=== PATIENT | female | born 1990 | race Caucasian/White ===

== ENCOUNTER 2021-10-11 23:26 | Emergency (ER) | payer MEDICAID, SELFPAY ==
[2021-10-11 23:28] VITALS: BP 133/96; PULSE 150; RESP 20; TEMP 36.7; O2SAT 100
[2021-10-11 23:39] VITALS: O2SAT 97
[2021-10-11 23:40] VITALS: BP 110/86; PULSE 161; RESP 28; O2SAT 96
[2021-10-11 23:46] VITALS: BP 131/106; PULSE 150; RESP 32; O2SAT 98
[2021-10-11 23:47] VITALS: PULSE 134; RESP 29; O2SAT 99
[2021-10-11 23:49] LABS: Basophils Absolute Auto 0.1 K/mm3 (0.0-0.1); Basophils Percent Auto 1.1 % (0.2-1.2); Hematocrit 40.7 % (37.0-47.0); Hemoglobin 14.3 g/dL (12.0-15.0); Immature Granulocyte Absolute 0.04 K/mm3 (0.00-0.031); Immature Granulocyte Percent A 0.6 % (0-0.5); Lymphocytes Absolute Auto 0.43 K/mm3 (0.9-3.2); Mean Corpuscular HGB Conc 35.1 g/dl (32-36); Mean Corpuscular Hemoglobin 35.7 pg (26-34); Mean Corpuscular Volume 101.5 fl (80-100); Mean Platelet Volume 10.9 fl (7.4-10.4); Monocytes Percent Auto 13.6 % (2.6-8.5); Neutrophils Absolute Auto 5.7 K/mm3 (1.3-6.7); Neutrophils Percent Auto 78.7 % (45.5-73.1); Nucleated Red Blood Cells Absolute Auto 0.1 K/mm3 (0.0-0.012); Nucleated Red Blood Cells Perc 0.7 % (0.0-0.2); Platelet Count Result 259 k/mm3 (150-375); Red Blood Count 4.01 M/mm3 (4.2-5.4); Red Cell Distribution Width 18.6 % (11.5-14.5); White Blood Count 7.2 K/mm3 (4.5-10.0)
[2021-10-11] MEDS: SODIUM CHLORIDE 0.9% IV 1,000 ML 999 ML IV CONT ×2 (23:50)
[2021-10-11] MEDS: LORazepam INJ (*CRX) 2 MG/ML VIAL IV PUSH (23:52)
[2021-10-11] MEDS: ONDANSETRON INJ 4 MG/2 ML VIAL IV PUSH (23:52)
[2021-10-11 23:59] LABS: Alanine Aminotransferase 111 U/L (6-35); Albumin Level 5.5 g/dL (3.5-5.1); Alkaline Phosphatase 109 U/L (38-126); Anion Gap 33 mmol/L (8-16); Aspartate Amino Transferase 438 U/L (14-36); Bilirubin,Total 1.8 mg/dL (0.2-1.3); Blood Urea Nitrogen 21 mg/dL (7-17); Calcium 9.6 mg/dL (8.4-10.2); Carbon Dioxide 11 mmol/L (22-30); Chloride 97 mmol/L (98-107); Estimated Glomerular Filt Rate 47; Glucose 124 mg/dL (65-110); Lipase 282 U/L (23-300); Potassium 4.1 mmol/L (3.4-5.0); Sodium 141 mmol/L (137-145)
[2021-10-12] VITALS (16 sets, daily range): BP systolic 108–151; BP diastolic 75–99; PULSE 104–137; RESP 15–31; O2SAT 95–100
--- NOTE | 2021-10-12 00:08 | ED.GENADULT ---
HPI - General Adult General Chief complaint: Nausea/Vomiting/Diarrhea Stated complaint: n/v for 48 hours Time Seen by Provider: 10/11/21 23:35 History of Present Illness HPI narrative: 31-year-old female presenting to the emergency department for evaluation for nausea and vomiting secondary to alcohol withdrawal. Patient states that she has been drinking heavily for approximately the last year and a half but even heavier over the last 2 months. Patient states over the last few weeks she was trying to decrease her alcohol consumption. Patient states she had been drinking up to 1/5 of alcohol a night. Patient states over the last few days she had weaned herself down to a pint a day and then a few days ago she stopped drinking completely. Patient states its been about a day and a half since she drank any alcohol. Since that time patient has had lots of nausea and vomiting. Patient does complaint of rapid heart rate. Patient denies any chest pain or shortness of breath. Patient states he does have some abdominal cramping due to the vomiting. Patient states he has never had seizures or tremor alcohol withdrawal. Patient states she did have a previous seizure but that was not associated with her drinking. Related Data Allergies Allergy/AdvReac Type Severity Reaction Status Date / Time No Known Allergies Allergy Verified 10/11/21 23:34 Review of Systems Review of Systems: CONSTITUTIONAL: Denies fever, chills, or sweats. EYES: Denies visual changes, redness, or discharge. ENT: Denies rhinorrhea, congestion, sore throat, or otalgia. CARDIOVASCULAR: Heart palpitations, see HPI RESPIRATORY: Denies cough or dyspnea. GASTROINTESTINAL: Nausea vomiting, see HPI GENITOURINARY: Denies dysuria or hematuria. SKIN: Denies rash or itching. MUSCULOSKELETAL: Denies back pain, joint pain, or myalgia. NEUROLOGIC: Denies headache, numbness, or weakness. PSYCHIATRIC: Denies anxiety or depression. Exam Narrative: APPEARANCE: Well appearing, no pain, no distress, well-nourished. HEAD: normocephalic, atraumatic. EYES: PERRLA/EOMI, conjunctivae clear. NOSE: Normal no drainage THROAT: Pharynx clear, no exudate. NECK: Supple. No adenopathy, no masses. RESPIRATORY: Airway patent, respirations nonlabored. Clear to auscultation bilaterally, no rales, rhonchi, wheezing. CARDIOVASCULAR: Regular rate and rhythm without murmurs rubs or gallops. ABDOMINAL: Soft, nontender, nondistended, normal bowel sounds MUSCULOSKELETAL: Moves all extremities. Strength/ROM intact, No edema, No calf tenderness. NEURO: Alert. Cranial nerves II through XII intact. Grossly intact SKIN: Warm, dry. Normal Color Course Course Emergency Course: Patient was tolerating p.o. in the emergency department after treatment and was significantly improved compared to arrival. Patient's heart rate was significantly improved. Patient did have heart rates that were not tachycardic. Patient was discharged home with medications for nausea control. Patient had no evidence of alcohol withdrawal. Patient was alert oriented and had no tremor. Patient was not diaphoretic and was well-appearing. Patient was comfortable with the plan for discharge and close follow-up. Patient did have significant lab abnormalities but patient was treated with 3 L of normal saline and was tolerating p.o. Vital Signs Vital signs: Vital Signs Temperature 98.1 F 10/11/21 23:28 Pulse Rate 150 H 10/11/21 23:28 Respiratory Rate 20 10/11/21 23:28 Blood Pressure 133/96 H 10/11/21 23:28 Pulse Oximetry 100 10/11/21 23:28 Oxygen Delivery Room Air 10/11/21 23:28 Temperature 98.1 F 10/11/21 23:28 Pulse Rate 118 H 10/12/21 03:05 Respiratory Rate 24 H 10/12/21 03:05 Blood Pressure 144/76 H 10/12/21 02:50 Pulse Oximetry 99 10/12/21 03:05 Oxygen Delivery Room Air 10/11/21 23:28 Medical Decision Making Vital Signs Vital Signs: Vital Signs Temperature 98.1 F 10/11/21 23:28 Puls
[2021-10-12] MEDS: SODIUM CHLORIDE 0.9% IV 1,000 ML 999 ML IV CONT (01:41)
[2021-10-12 01:52] LABS: Appearance Urine Clear (Clear); Bilirubin Urine 1+ (Negative); Blood Urine 1+ (Negative); Color Urine Yellow (Yellow); Glucose Urine UA Negative (Negative); Ketones Urine 4+ mg/dL (Negative); Leukocyte Esterase Ur Negative LEU/UL (Negative); Nitrate Urine Negative (Negative); Protein Urine 2+ mg/dL (Negative); Specific Grav Ur 1.025 (1.001-1.035); Urobilinogen Urine 0.2 mg/dL (<2.0)
[2021-10-12 02:09] LABS: Bacteria Urine Trace /hpf; Mucus Urine Rare /lpf; Squamous Epithelial Cell Urine Occasional /hpf (Few); WBC Urine 0-3 /hpf
[2021-10-12 02:13] LABS: Add Urine Microscopic? YES
[2021-10-12] MEDS: BELLADONNA ALK/PHENOB ELIX 10 ML, MAG HYDROX/ALUMINUM HYD/SIMETH 30 ML, LIDOCAINE HCL 2... PO (02:15)
[2021-10-12] MEDS: METOCLOPRAMIDE HCL INJ 10 MG/2 ML VIAL IV PUSH (03:36)
== END 2021-10-12 04:10 | disposition home or self-care (01) ==
PROVIDERS: Emergency Provider Emergency Medicine
DX: E86.0 Dehydration (principal); R11.2 Nausea with vomiting, unspecified
CPT/HCPCS: 36415; 80053; 81001; 83690; 85025; 96361; 96374; 96375; 99284; A9270; J2060; J2405; J2765; J7030

== ENCOUNTER 2022-08-18 09:06 | Emergency (ER) | payer MEDICAID, SELFPAY ==
[2022-08-18] VITALS (28 sets, daily range): BP systolic 130–156; BP diastolic 100–128; PULSE 97–141; RESP 11–26; TEMP 36.6–37.3; O2SAT 93–100
--- NOTE | 2022-08-18 09:31 | WPDEDEXPGENP ---
HPI - General Ped General Chief complaint: Unspecified Stated complaint: Alcohol withdrawl Time Seen by Provider: 08/18/22 09:27 Source: patient Mode of arrival: ambulatory Limitations: no limitations Nursing Documentation: reviewed/agree History of Present Illness HPI narrative: Patient is a 31-year-old alcoholic female last drink at 3:00 a.m. she said she is going through withdrawal she is weak as needed or drunk very much for the last week. She had been binge drinking. She usually goes off 2 weeks and then back on again. She has been to the hospital in the past with low potassium. Does not know if she wants to go through rehab. Usually she drinks vodka she does not know how much she last drank at 3:00 a.m.. Complains of nausea generalized weakness vomiting. Denies any problems voiding or stooling rash or itching cough sore throat runny nose or fever. She does currently starter. Denies any other complaints Related Data Home Medications Medication Instructions Recorded Confirmed quetiapine 50 mg tablet 50 mg PO HS 08/18/22 08/18/22 Allergies Allergy/AdvReac Type Severity Reaction Status Date / Time No Known Allergies Allergy Verified 08/18/22 09:32 Pediatric Exam Narrative: Physical exam: White female no apparent distress.? Normocephalic atraumatic eyes conjunctiva pink sclera nonicteric.? Ears TMs are normal.? Oropharynx is clear with moist mucous membranes no exudates.? Neck is supple no lymphadenopathy nontender full range of motion.? Back is nontender.? Chest nontender.? Lungs are clear without wheezes rales or rhonchi.? Heart is regular rate rhythm without murmurs gallops or rubs.? Abdomen soft and nontender no hepatosplenomegaly or masses no CVA tenderness no abdominal bruits.? Extremities no cyanosis clubbing or edema.? Neurological she is alert and oriented x4 motor and sensory grossly intact.? Skin is warm and dry without lesions. General: Limitations: no limitations General appearance: ill-appearing Head: Head exam: normocephalic Course Vital Signs Vital signs: Vital Signs Temperature 37.0 C 08/18/22 09:06 Pulse Rate 128 H 08/18/22 09:06 Respiratory Rate 20 08/18/22 09:06 Blood Pressure 130/110 H 08/18/22 09:06 Pulse Oximetry 98 08/18/22 09:06 Oxygen Delivery Room Air 08/18/22 09:06 Temperature 37.0 C 08/18/22 09:06 Pulse Rate 128 H 08/18/22 09:06 Respiratory Rate 20 08/18/22 09:06 Blood Pressure 130/110 H 08/18/22 09:06 Pulse Oximetry 98 08/18/22 09:06 Oxygen Delivery Room Air 08/18/22 09:06 Medical Decision Making MDM Narrative Medical decision making narrative: Patient was placed in room 2 history and physical were performed with patient's friend present. Labs are drawn it banana bag was started. magnesium was 1.7 she was given 2 g IV potassium was 3.1 she was given 40 mg p.o. along with her banana bag her alcohol was 221 so she is not going through alcohol withdrawal. Hemoglobin was 15.7 the rest of her CMP was normal. Independent Historian: patient's friend , [place] stated he has brought her to the emergency room 5 times in the last 12 months to get fluids treatment for potassium but she has never gone to rehab from those visits. Differential Dx includes but not limited to: alcohol withdrawal hypokalemia hypomagnesemia malnutrition dehydration Independently Reviewed by me: External Source Review: Received Librium last month for another ED, but patient states she failed to quit drinking at that time. Seen last October here for dehydration nausea vomiting. At that time she thought she is going through alcohol withdrawal but was not. Shared decision Making: Discussed with Vital Signs Vital Signs: Vital Signs Temperature 37.0 C 08/18/22 09:06 Pulse Rate 128 H 08/18/22 09:06 Respiratory Rate 20 08/18/22 09:06 Blood Pressure 130/110 H 08/18/22 09:06 Pulse Oximetry 98 08/18/22 09:06 Oxygen Delivery Room Air
[2022-08-18 09:56] LABS: Hemoglobin 15.7 g/dL (12.0-15.0); Mean Corpuscular HGB Conc 36.5 g/dL (32.0-36.0); Mean Corpuscular Hemoglobin 32.4 pg (27.0-31.0); Mean Corpuscular Volume 88.8 fL (78.0-102.0); Mean Platelet Volume 10.4 fl (9.2-11.8); Platelet Count Result 273 K/mm3 (150-420); Red Blood Count 4.84 M/mm3 (4.20-5.40); Red Cell Distribution Width 13.8 % (11.6-14.4); White Blood Count 6.7 K/mm3 (4.8-10.8)
[2022-08-18] MEDS: ONDANSETRON INJ 4 MG/2 ML VIAL IV PUSH ×2 (10:09→10:25)
--- NOTE | 2022-08-18 10:10 | PC.NURSE ---
PT IS HAVING DRY HEAVES IN EXAM ROOM. MEDICATION ADMINISTERED ORDERED. PT IS AWAITING IVF FROM PHARMACY AT THIS TIME. SIG OTHER AT BEDSIDE. WILL CONTINUE TO MONITOR.
[2022-08-18 10:11] LABS: Alanine Aminotransferase 15 U/L (14-59); Albumin Level 3.9 g/dL (3.4-5.0); Alkaline Phosphatase 59 U/L (46-116); Anion Gap 18 mmol/L (8-16); Aspartate Amino Transferase 27 U/L (15-37); Bilirubin,Total 0.8 mg/dL (0.00-1.00); Blood Urea Nitrogen 10 mg/dL (7-18); Calcium 8.9 mg/dL (8.5-10.1); Carbon Dioxide 23 mmol/L (21-32); Chloride 98 mmol/L (98-108); Estimated CRCL calculation 84 ml/min; Estimated Glomerular Filt Rate > 60; Glucose 114 mg/dL (70-99); Magnesium 1.7 mg/dL (1.8-2.4); Osmolality Calculated 288 mOsm/kg (285-295); Potassium 3.1 mmol/L (3.5-5.1); Sodium 139 mmol/L (136-145); Total Protein 7.7 g/dL (6.4-8.2)
[2022-08-18 10:13] LABS: Ethanol 221 mg/dL (0-6)
[2022-08-18] MEDS: THIAMINE HCL INJ 100 MG, FOLIC ACID 1 MG, MULTIVITAMINS-12 INJ 10 ML, MAGNESIUM SULFATE... IV CONT (10:25)
[2022-08-18] MEDS: MAGNESIUM SULF 2 GM/WATER 50ML 2 GM/50 ML BAG IVPB (10:25)
[2022-08-18] MEDS: POTASSIUM CHLORIDE 20 MEQ TABLET 40 MEQ PO (10:55)
--- NOTE | 2022-08-18 11:56 | PC.NURSE ---
PT IS CURRENTLY SPEAKING WITH REHAB SERVICES ON PHONE IN EXAM ROOM AT THIS TIME. THIS RN CALLED CALLED AND SPOKE WITH MARCIA AT [facility] IN [place] AND WAS GIVEN PHONE NUMBERS FOR [facility] AND [facility]REFERR[facility] FAM[facility] IN [facility], PT LIVES IN [facility]. PT REPORTS SHE HAS SPOKEN WITH MARCIA AT [facility], HAS AN APPOINTMENT AT 0830 ON 08/20 FOR 5 DAY IN PATIENT DETOX.
== END 2022-08-18 12:20 | disposition home or self-care (01) ==
PROVIDERS: Emergency Provider Emergency Medicine
DX: F10.120 Alcohol abuse with intoxication, uncomplicated (principal); E83.42 Hypomagnesemia; E87.6 Hypokalemia
CPT/HCPCS: 36415; 80053; 80307; 83735; 85027; 96365; 96368; 96375; 99284; A9270; J2405; J3411; J3475; J7121